=== PATIENT | male | born 1995 | race Two or more races ===

== ENCOUNTER 2017-10-31 06:48 | Emergency (ER) | payer OTHER ==
[~2017-10-31] VITALS: Ht 162.6 cm; Wt 67.8 kg
[2017-10-31 07:33] VITALS: BP 147/76
== END 2017-10-31 07:34 | disposition home or self-care (01) ==
LOC: EME 06:48
DX: S01.21XA Laceration without foreign body of nose, initial encounter (principal); V74.6XXA Passenger on bus injured in collision with heavy transport vehicle or bus in traffic accident, initial encounter; Y92.411 Interstate highway as the place of occurrence of the external cause
CPT/HCPCS: 99281; 99283